=== PATIENT | male | born 1950 | race Caucasian/White ===

== ENCOUNTER 2019-01-14 07:00 | Outpatient (CLI) | payer OTHER, SELFPAY ==
--- NOTE | 2019-01-14 08:47 | DI.US_ITS ---
SYMPTOM/DIAGNOSIS: FATTY LIVER ABDOMINAL ULTRASOUND: 01/14 The liver is of increased echogenicity and shows decreased through transmission suggesting hepatic steatosis. No focal lesion identified. Spleen is unremarkable in appearance. Visualized portions of the pancreas are unremarkable. Kidneys are unremarkable except for question of small lower pole nonobstructing left renal calculus. Abdominal aorta and IVC are of normal diameter. No evidence of cholelithiasis or biliary dilatation. CONCLUSION: Findings consistent with hepatic steatosis. Possible nonobstructing left lower pole renal calculus.
== END 2019-01-14 07:20 ==
PROVIDERS: PCP Nurse Practitioner Primary Care; Visit Provider Nurse Practitioner Primary Care
DX: K76.0 Fatty (change of) liver, not elsewhere classified (principal); N20.0 Calculus of kidney
CPT/HCPCS: 76700

== ENCOUNTER 2024-07-20 22:55 | Emergency (ER) | payer OTHER, SELFPAY ==
[2024-07-20] VITALS (12 sets, daily range): BP systolic 153–195; BP diastolic 79–114; PULSE 93–107; RESP 16–25; TEMP 37.6; O2SAT 95–98
--- NOTE | 2024-07-20 22:45 | RT.EKG_ITS ---
APPROVED REPORT Exam: Resting ECG Reason for Exam: chest pain Patient Location: E HR:105 bpm ECG Measurements Heart Rate 105 AXIS MD 180 P 48 QRSd 100 QRS -58 QT 354 T 63 QTc 468 Conclusion Sinus tachycardia...rate> 99 Ventricular premature complex...V complex w/ short R-R interval Inferior infarct, old...Q >35mS, II III aVF appropriate intervals no ST segment or T wave abnormalities to suggest occlusive ID
--- NOTE | 2024-07-20 23:00 | DI.RAD_ITS ---
Exam(s) XR CHEST 2V PA LATERAL EXAM: XR CHEST 2V PA LATERAL CLINICAL HISTORY: Chest pain TECHNIQUE: 2D digital imaging was performed of the chest. Two images were obtained. PA and lateral views were obtained. COMPARISON: No exams were available for comparison FINDINGS: MEDIASTINUM: Normal. HEART: Normal. PULMONARY VASCULATURE: Normal. LUNGS: Clear. PLEURAL SPACE: No pleural effusion or pneumothorax. BONE:Within normal limits for the patient's age. OTHER FINDINGS:Normal. IMPRESSION: No acute pulmonary findings. DATA REPOSITORY: RADIATION DOSE DELIVERED:
[2024-07-20] MEDS: Aspirin 81 MG CHEW 324 MG CH (23:13)
[2024-07-20 23:14] LABS: Abs Immature Grans 0.02 10^3/uL (0.0-0.06); Absolute Basophil Count 0.03 10^3/uL (0.0-0.2); Absolute Eosinophil Count 0.17 10^3/uL (0.0-0.7); Absolute Lymphocyte Count 2.42 10^3/uL (1.2-3.4); Absolute Monocyte Count 0.87 10^3/uL (0.1-0.8); Absolute Neutrophil Count 3.16 10^3/uL (1.2-6.7); Basophils % 0.4 %; Eosinophils % 2.5 %; HCT 47.3 % (40.0-50.0); HGB 16.1 g/dL (13.5-17.5); Immature Grans % 0.3 %; Lymphocytes % 36.3 %; MCH 31.8 pg (27.0-33.0); MCV 94 fL (80-95); MPV 9.4 fL (8.0-11.0); Neutrophils % 47.5 %; Platelet Count 171 10^3/uL (130-400); RBC 5.06 10^6/uL (4.36-5.78); RDW 12.8 % (11.8-14.1); WBC 6.67 10^3/uL (4.4-10.8)
[2024-07-20 23:27] LABS: PTT Activated 23.3 sec (20.6-30.2); Prothrombin Time 9.8 sec (9.1-11.1)
[2024-07-20 23:36] LABS: ALT 40 U/L (16-63); AST 21 U/L (15-37); Albumin 4.4 g/dL (3.4-5.0); Alkaline Phosphatase 138 U/L (46-116); Anion Gap 10.3 mmol/L (3-11); BUN 25 mg/dL (7-18); Bilirubin, Total 0.78 mg/dL (0.2-1.0); CO2 25.7 mmol/L (21.0-32.0); CREATININE 1.4 mg/dL (0.70-1.30); Calcium 9.3 mg/dL (8.5-10.1); Chloride 103 mmol/L (98-107); Estimated GFR 52.74 (mL/min/1.73m2); Glucose 192 mg/dL (74-106); Lipase 52 U/L (<78); Magnesium 1.9 mg/dL (1.8-2.4); NT-proBNP 80 pg/mL (<300); Potassium 4.5 mmol/L (3.5-5.1); Sodium 139 mmol/L (136-145); Total Protein 7.7 g/dL (6.4-8.2); Troponin I 6 ng/L (<or=76)
--- NOTE | 2024-07-20 23:43 | ED.GENADUL_ITS ---
Discharge Plan Disposition Patient Disposition: Home Condition: Good Discharge Details Chief Complaint: Chest Pain Clinical Impression: Chest pain Primary Care Provider: Nandini Yao ED Provider: Yelitza Rudolph Discharge Instructions Instructions: Chest Pain, Adult ED Additional Instructions: Call your primary care doctor in the morning to schedule a followup appointment for within one week to followup on your visit today. At that visit please discuss your chest pain and whether or not you should have a cardiac stress test or other cardiac workup. Return to the emergency department for new or worsening symptoms including new/different/worse pain, difficultly breathing, feeling like you are going to pass out, or if you have any other concerns. Referrals: Nandini Yao [Primary Care Provider] - [facility] General Mode of arrival: ambulatory . Date/Time Provider Initiated Documentation: 07/20/24 22:59 . Limitations to Documentation: no limitations . Information obtained by: patient . HPI Narrative: 74yo M with hx HTN, HLD, T2DM, MACIEL, presenting for chest pressure. Sensation is dull, mild, substernal and left sided. Started around 10pm while he was at rest and has been constant since onset. No shortness of breath or lightheadedness. Had similar symptoms in the past for several months after his , not since then. No prior cardiac history. Concerned because he took his radial pulse at home and it was 8-10 BPM for a few minutes and then was absent. He was awake, alert, and not lightheaded during this. No nausea or vomiting but did have one episode of diarrhea this evening, nonbloody. Otherwise in his usual state of health with no fevers, chills, rash, abdominal pain, or other concerns. Related Data Home Medications ?Medication ?Instructions ?Recorded ?Confirmed Unknown [Unable to Obtain] 07/21/24 07/21/24 Allergies Allergy/AdvReac Type Severity Reaction Status Date / Time peanut Allergy Severe Anaphylaxis Verified 07/20/24 23:01 Penicillins Allergy Intermediate Unknown Verified 07/20/24 23:01 General Stated Complaint: Chest Pain SMITA: 3 Review of Systems Narrative: see HPI Exam Narrative Exam Narrative: General: Alert, well appearing, well nourished, in no acute distress. Head: Normocephalic, atraumatic Neck: Trachea midline, ?Neck supple. ENT: ?MMM.? No oropharygeal lesions or exudate. Cardiac: ?RRR, no murmurs appreciated. 2+ equal radial pulses Resp: No respiratory distress. CTAB. Abd: ?Soft, non-distended, nontender : ?No suprapubic tenderness. Extremities: ?No deformities.? No peripheral edema. Neurologic: GCS 15. ? Moves all extremities freely against gravity Course Vital Signs Vital signs: Vital Signs Temperature 37.6 C 07/20/24 22:58 Pulse 107 H 07/20/24 22:58 Respiratory Rate 16 07/20/24 22:58 Blood Pressure 195/114 H 07/20/24 22:58 Pulse Oximetry 96 07/20/24 22:58 Temperature 37.6 C 07/20/24 22:58 Temperature Source Temporal Artery Scan 07/20/24 22:58 Pulse 96 H 07/20/24 23:20 Pulse 96 H 07/20/24 23:20 Respiratory Rate 18 07/20/24 23:20 Respiratory Effort Normal, Non-Labored 07/20/24 23:04 Respiratory Depth Normal 07/20/24 23:04 Respiratory Pattern Normal 07/20/24 23:04 Blood Pressure 163/79 H 07/20/24 23:16 Blood Pressure Mean 108 07/20/24 23:16 Pulse Oximetry 96 07/20/24 23:20 Pain Level 2 07/20/24 23:04 Lab/Test Results Lab/Test Results: Laboratory Tests Range/Units 07/20/24 23:04 WBC (4.4-10.8) 10^3/uL 6.67 RBC (4.36-5.78) 10^6/uL 5.06 Hgb (13.5-17.5) g/dL 16.1 Hct (40.0-50.0) % 47.3 MCV (80-95) fL 94 MCH (27.0-33.0) pg 31.8 MCHC (32.0-36.0) % 34.0 RDW (11.8-14.1) % 12.8 Plt Count (130-400) 10^3/uL 171 MPV (8.0-11.0) fL 9.4 Immature Gran % % 0.3 Neutrophils % % 47.5 Lymphocytes % % 36.3 Monocytes % % 13.0 Eosinophils % % 2.5 Basophils % % 0.4 Nucleated RBC % (0.0-0.3) % 0.0 Absolute Neutrophils (1.2-6.7) 10^3/uL 3.16 Absolute Lymphocytes (1.2-3.4) 10^3/uL 2.42 Absolute Monocytes (0.1-0.8) 10^3/uL 0.87 H Absolute Eosinophils (0.0-0.7) 10^3/uL 0.17 Absolute Basophils (0.0-0.2) 10^3/uL 0.03 PT (9.1-11.1) sec 9.8 INR (0.9-1.1) 1.0 APTT (20.6-30.2) sec 23.3 Sodium (136-145) mmol/L 139 Potassium (3.5-5.1) mmol/L 4.5 Chloride (98-107) mmol/L 103 Carbon Dioxide (21.0-32.0) mmol/L 25.7 Anion Gap (3-11) mmol/L 10.3 BUN (7-18) mg/dL 25 H Creatinine (0.70-1.30) mg/dL 1.4 H Est GFR (CKD-EPI 2020) (mL/min/1.73m2) 52.74 Glucose (74-106) mg/dL 192 H Calcium (8.5-10.1) mg/dL 9.3 Magnesium (1.8-2.4) mg/dL 1.9 Total Bilirubin (0.2-1.0) mg/dL 0.78 AST (15-37) U/L 21 ALT (16-63) U/L 40 Alkaline Phosphatase (46-116) U/L 138 H Troponin I (<or=76) ng/L 6 NT-Pro-B Natriuret Pep (<300) pg/mL 80 Total Protein (6.4-8.2) g/dL 7.7 Albumin (3.4-5.0) g/dL 4.4 Lipase (<78) U/L 52 Medical Decision Making 74yo M with hx HTN, HLD, T2DM, MACIEL, presenting for chest pressure. Sensation is dull, mild, substernal and left sided, constant since onset at 10pm at rest. Diarrhea this afternoon, no other associated symptoms. Hypertensive on arrival and slightly tachycardiac in low 100's, vital signs otherwise reassuring. Unremarkable physical exam. History and exam not suggestive of dissection; would not get CTA. Pt describes radial pulse of 0-10 at home while he was alert and checking it; unlikely this was accurate. Given 325 ASA while awaiting results of workup. EKG sinus tachycardia, appropriate intervals, no ST segment or T wave abnormalities to suggest occlusive ND. Labs reviewed as below, CBC with no leukocytosis or anemia, CMP with slightly el evated Cr at 1.4 (no prior available) and no actionable abnormalities, lipase normal (unlikely pancreatitis), coags normal, BNP not suggestive of heart failure, initial troponin 6, dimer 567 (YEARS negative, would not further pursue PE with CT scan). CXR independently reviewed; no focal pneumonia or pneumothorax on my view, radiology read with no acute findings. Repeat troponin 5. On reassessment patient remains well appearing, BP improved to 140's/70's without intervention. Chest sensation remains present; will try antacids. Discussed findings with patient and with HEART score 4 (age, risk factors), moderate risk, and delta troponin reassuring he would benefit from close outpatient followup and likely stress test. He is agreeable to this plan. Discharged home; discharge instructions and return precautions were reviewed with patient who verbalized understanding. All questions were answered and he is in full agreement with the plan. Lab Data Lab results reviewed: Yes I reviewed the patient's lab results. Labs: Laboratory Tests Range/Units 07/20/24 07/21/24 23:04 00:17 WBC (4.4-10.8) 10^3/uL 6.67 RBC (4.36-5.78) 10^6/uL 5.06 Hgb (13.5-17.5) g/dL 16.1 Hct (40.0-50.0) % 47.3 MCV (80-95) fL 94 MCH (27.0-33.0) pg 31.8 MCHC (32.0-36.0) % 34.0 RDW (11.8-14.1) % 12.8 Plt Count (130-400) 10^3/uL 171 MPV (8.0-11.0) fL 9.4 Immature Gran % % 0.3 Neutrophils % % 47.5 Lymphocytes % % 36.3 Monocytes % % 13.0 Eosinophils % % 2.5 Basophils % % 0.4 Nucleated RBC % (0.0-0.3) % 0.0 Absolute Neutrophils (1.2-6.7) 10^3/uL 3.16 Absolute Lymphocytes (1.2-3.4) 10^3/uL 2.42 Absolute Monocytes (0.1-0.8) 10^3/uL 0.87 H Absolute Eosinophils (0.0-0.7) 10^3/uL 0.17 Absolute Basophils (0.0-0.2) 10^3/uL 0.03 PT (9.1-11.1) sec 9.8 INR (0.9-1.1) 1.0 APTT (20.6-30.2) sec 23.3 D-Dimer (<500) ng/mlFEU 567 H Sodium (136-145) mmol/L 139 Potassium (3.5-5.1) mmol/L 4.5 Chloride (98-107) mmol/L 103 Carbon Dioxide (21.0-32.0) mmol/L 25.7 Anion Gap (3-11) mmol/L 10.3 BUN (7-18) mg/dL 25 H Creatinine (0.70-1.30) mg/dL 1.4 H Est GFR (CKD-EPI 2020) (mL/min/1.73m2) 52.74 Glucose (74-106) mg/dL 192 H Calcium (8.5-10.1) mg/dL 9.3 Magnesium (1.8-2.4) mg/dL 1.9 Total Bilirubin (0.2-1.0) mg/dL 0.78 AST (15-37) U/L 21 ALT (16-63) U/L 40 Alkaline Phosphatase (46-116) U/L 138 H Troponin I (<or=76) ng/L 6 5 NT-Pro-B Natriuret Pep (<300) pg/mL 80 Total Protein (6.4-8.2) g/dL 7.7 Albumin (3.4-5.0) g/dL 4.4 Lipase (<78) U/L 52 Quality:SDOH Health Related Social Needs: No Data to Display PFSH All Active Problems (Updated 07/21/24 @ 01:00 by Yelitza Rudolph MD) Chest pain (Acute) Social History Smoking/Tobacco Use Status: Never Smoking risk assessment performed?: Yes Alcohol Intake: never Drug use: Never Substance use type: does not use Do you feel safe at home: Yes Do you feel safe in your relationship?: Yes
[2024-07-20 23:51] LABS: D-Dimer 567 ng/mlFEU (<500)
[2024-07-21] VITALS (14 sets, daily range): BP systolic 138–170; BP diastolic 66–90; PULSE 85–95; RESP 20–26; TEMP 36.5; O2SAT 91–97
--- NOTE | 2024-07-21 00:16 | DI.VRAD_ITS ---
PROCEDURE INFORMATION: Exam: XR Chest Exam date and time: 07/20/2024 11:53 PM Age: 74 years old Clinical indication: Other: Chest pain TECHNIQUE: Imaging protocol: Radiologic exam of the chest. Views: 2 views. COMPARISON: No relevant prior studies available. FINDINGS: Lungs: Unremarkable. No consolidation. Pleural spaces: Unremarkable. No pleural effusion. No pneumothorax. Heart/Mediastinum: Unremarkable. No cardiomegaly. Bones/joints: Mild degenerative disease of bilateral acromioclavicular joints. There are mild degenerative changes of the glenohumeral joint. The thoracic spine demonstrates mild degenerative changes at multiple levels. IMPRESSION: No acute cardiopulmonary process. Dictated and Authenticated by: Angel Gaytan MD. Orderin Klaudia Torre MD
[2024-07-21 00:38] LABS: Troponin I 5 ng/L (<or=76)
== END 2024-07-21 06:12 | disposition home or self-care (01) ==
PROVIDERS: Emergency Provider Student in an Organized Health Care Education/Training Program; PCP Nurse Practitioner Primary Care
DX: R07.9 Chest pain, unspecified (principal); I10 Essential (primary) hypertension; E78.5 Hyperlipidemia, unspecified; E11.9 Type 2 diabetes mellitus without complications; K75.81 Nonalcoholic steatohepatitis (NASH)
CPT/HCPCS: 36415; 80053; 83690; 93005; 99285; 71046; 83735; 83880; 84484; 85025; 85379; 85610; 85730; 93010; 99284